=== PATIENT | male | born 1950 | race Caucasian/White ===

== ENCOUNTER 2021-08-02 16:25 | Outpatient (CLI) | payer MEDICARE, BC | END 2021-08-02 16:26 | disposition home or self-care (01) | LOC: BICRAD 16:25 | PROVIDERS: ATTEND Physician Assistant | DX: R06.02 Shortness of breath (principal); R53.83 Other fatigue | CPT/HCPCS: 36415; 71046; 80053; 83880; 85025; 85379 ==

== ENCOUNTER 2021-08-03 11:35 | Outpatient (CLI) | payer MEDICARE, BC ==
[2021-08-03] MEDS ORDERED: Iopamidol 370 76% 100 ML VIAL ONE (12:20)
== END 2021-08-03 11:36 | disposition home or self-care (01) ==
LOC: CT 11:35
PROVIDERS: ATTEND Physician Assistant
DX: R06.02 Shortness of breath (principal); R53.83 Other fatigue; R79.1 Abnormal coagulation profile; R91.1 Solitary pulmonary nodule
CPT/HCPCS: 71275; Q9967

== ENCOUNTER 2021-11-11 14:29 | Outpatient (CLI) | payer MEDICARE | END 2021-11-11 14:30 | disposition home or self-care (01) | LOC: BICCT 14:29 | PROVIDERS: ATTEND Internal Medicine Critical Care Medicine | DX: R91.1 Solitary pulmonary nodule (principal) | CPT/HCPCS: 71250 ==